=== PATIENT | female | born 1955 | race Native Hawaiian/Other Pacific Islander ===

== ENCOUNTER 2016-07-24 17:13 | Emergency (ER) | payer OTHER, MEDICAID ==
[2016-07-24 17:55] VITALS: RESP 20; O2SAT 98
[2016-07-24] MEDS ORDERED: Bacitracin 500 Units/gm Oint Foilpak UD TOP ONE (18:02)
[2016-07-24] MEDS ORDERED: Bacitracin 500 Units/gm Oint Foilpak UD ONE (18:12)
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
[2016-07-24 19:27] VITALS: BP 152/80; PULSE 82; TEMP 98.4
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
== END 2016-07-24 19:38 | disposition home or self-care (01) ==
LOC: C.ER 17:13
DX: S80.01XA Contusion of right knee, initial encounter (principal); S50.01XA Contusion of right elbow, initial encounter; S39.012A Strain of muscle, fascia and tendon of lower back, initial encounter; V03.00XA Pedestrian on foot injured in collision with car, pick-up truck or van in nontraffic accident, initial encounter; Y92.410 Unspecified street and highway as the place of occurrence of the external cause

== ENCOUNTER 2018-01-13 20:52 | Emergency (ER) | payer MEDICAID ==
[2018-01-13 21:02] VITALS: O2SAT 98
--- NOTE | 2018-01-13 21:43 | C.PDOC ---
History Of Present Illness 62 y/o female presents to ED complaining of left knee pain since earlier today. Patent states she was walking down the stairs when she twisted her ankle. Patient denies any weakness, numbness, or any other physical complaints. Time Seen by Provider: 01/13/18 21:18 Chief Complaint (Nursing): Lower Extremity Problem/Injury History Per: Patient History/Exam Limitations: no limitations Onset/Duration Of Symptoms: Hrs Current Symptoms Are (Timing): Still Present Past Medical History Reviewed: Historical Data, Nursing Documentation, Vital Signs Vital Signs: Last Vital Signs Temp 98.5 F 01/13/18 20:58 Pulse 74 01/13/18 20:58 Resp 20 01/13/18 20:58 BP 117/71 01/13/18 20:58 Pulse Ox 98 01/13/18 20:58 - Medical History PMH: Arthritis, HTN, Hypercholesterolemia Family History: States: No Known Family Hx - Social History Hx Alcohol Use: No Hx Substance Use: No - Immunization History Hx Tetanus Toxoid Vaccination: Yes Hx Influenza Vaccination: Yes (2018) Hx Pneumococcal Vaccination: Yes Review Of Systems Except As Marked, All Systems Reviewed And Found Negative. Constitutional: Negative for: Fever, Chills Cardiovascular: Negative for: Chest Pain Respiratory: Negative for: Cough, Shortness of Breath Musculoskeletal: Positive for: Other (Left knee pain). Negative for: Neck Pain Neurological: Negative for: Weakness, Numbness Physical Exam - Physical Exam Appears: Non-toxic, No Acute Distress Skin: Warm, Dry Head: Atraumatic, Normacephalic Eye(s): bilateral: Normal Inspection Oral Mucosa: Moist Extremity: Tenderness (to left knee), Capillary Refill (less than 2 seconds), No Deformity, No Swelling Neurological/Psych: Oriented x3, Normal Speech, Normal Motor, Normal Sensation, Normal Reflexes Gait: Steady ED Course And Treatment O2 Sat by Pulse Oximetry: 98 (RA) Pulse Ox Interpretation: Normal Progress Note: Left knee x-ray ordered and without acute finding. Knee immobilizer was applied, patient was unsteady with crutch walking. Walker was gi jose to the patient. Disposition - Disposition Referrals: Emilio Baird MD [Staff Provider] - Disposition: HOME/ ROUTINE Disposition Time: 22:31 Condition: STABLE Additional Instructions: Follow up with your PMD and Orthopedist within 1-2 days. Return to Ed if feel worse. Prescriptions: Ibuprofen [Motrin Tab] 400 mg PO Q8 #30 tab Instructions: Knee Sprain (DC) Forms: [employer] (Tajik) - Clinical Impression Clinical Impression: Knee sprain - PA / UTILITY ASSEMBLER / Resident Statement MD/DO has reviewed & agrees with the documentation as recorded. - Scribe Statement The provider has reviewed the documentation as recorded by the Scribe Michaela Long All medical record entries made by the Scribe were at my direction and personally dictated by me. I have reviewed the chart and agree that the record accurately reflects my personal performance of the history, physical exam, medical decision making, and the department course for this patient. I have also personally directed, reviewed, and agree with the discharge instructions and disposition.
[2018-01-13 22:48] VITALS: BP 139/69; PULSE 77; RESP 18; TEMP 98.2
--- NOTE | 2018-01-14 09:00 | RAD ---
Left knee three views History: Injury. Comparison: None available. Findings: Enthesopathic change noted at the anterior superior bony patella at the distal quadriceps tendon insertion. No significant suprapatellar joint effusion. Mild medial compartment joint space narrowing of the femorotibial joint space. Mild patellofemoral compartment joint space narrowing. Spurring of the tibial spines. Os fabella noted. Impression: Enthesopathic change noted at the anterior superior bony patella at the distal quadriceps tendon insertion. No significant suprapatellar joint effusion. Mild medial compartment joint space narrowing of the femorotibial joint space. Mild patellofemoral compartment joint space narrowing. Spurring of the tibial spines. Os fabella noted. If pain persists, consider correlation with MRI.
== END 2018-01-13 22:48 | disposition home or self-care (01) ==
LOC: C.ER 20:52
DX: S83.92XA Sprain of unspecified site of left knee, initial encounter (principal); X50.9XXA Other and unspecified overexertion or strenuous movements or postures, initial encounter